=== PATIENT | female | born 1985 | race Caucasian/White ===

== ENCOUNTER 2023-05-15 08:55 | Emergency (ER) | payer MEDICAID, OTHER ==
[~2023-05-15] VITALS: Ht 172.7 cm; Wt 90.9 kg
[2023-05-15 09:27] VITALS: TEMP 97.5
[2023-05-15] MEDS ORDERED: CYCL-394 PO (10:08)
[2023-05-15 10:31] VITALS: BP 109/69; PULSE 69; RESP 20; O2SAT 99
== END 2023-05-15 11:48 | disposition home or self-care (01) ==
LOC: ER 08:55
DX: S16.1XXA Strain of muscle, fascia and tendon at neck level, initial encounter (principal); M54.50 Low back pain, unspecified; Z79.899 Other long term (current) drug therapy; Z98.890 Other specified postprocedural states; V87.7XXA Person injured in collision between other specified motor vehicles (traffic), initial encounter; Y93.89 Activity, other specified; Y92.89 Other specified places as the place of occurrence of the external cause; Y99.8 Other external cause status
CPT/HCPCS: 72040; 72100; 99284